=== PATIENT | male | born 2000 | race Caucasian/White ===

== ENCOUNTER 2018-05-14 01:29 | Emergency (ER) | payer BC ==
[~2018-05-14] VITALS: Ht 177.8 cm; Wt 68.2 kg
[2018-05-14 01:37] VITALS: BP 126/86; TEMP 96.9
[2018-05-14] MEDS ORDERED: ZOFRAN ODT4 MG PO ×2 (03:32→03:33)
[2018-05-14 04:05] VITALS: PULSE 75
== END 2018-05-14 04:05 | disposition home or self-care (01) ==
LOC: COL.ER 01:29
DX: F10.129 Alcohol abuse with intoxication, unspecified (principal); R41.82 Altered mental status, unspecified; Y90.7 Blood alcohol level of 200-239 mg/100 ml
CPT/HCPCS: J2405; J7030